=== PATIENT | male | born 1955 | race Caucasian/White ===

== ENCOUNTER → 2018-05-07 11:09 | Outpatient (CLI) | payer BC ==
[~2018-05-07 11:09] MED LIST: BACTRIM DS TABL1 TAB PO; LOPRESSOR25 MG PO
[2018-06-11 09:04] VITALS: BMI 31.9
== END | disposition home or self-care (01) ==
LOC: D.RAD 10:15
DX: Z87.442 Personal history of urinary calculi (principal)

== ENCOUNTER 2018-06-11 08:10 | Day surgery (SDC) | payer BC ==
[2018-06-10 15:00] LABS: HEMOGLOBIN 14.7 g/dL (13.5-17.5); MCH 30.6 pg (26.0-34.0); MCV 87.3 fL (80.0-100.0); MEAN PLATELET VOLUME 9.6 fL (7.4-10.4); RBC 4.81 10x6/uL (4.20-6.10); RDW 12.8 % (11.5-14.5); WBC 8.8 10x3/uL (4.8-10.8)
[~2018-06-11] VITALS: Ht 177.8 cm; Wt 100.7 kg
--- NOTE | ~2018-06-11 | OP ---
PATIENT NAME: YESSI RODAS MEDICAL RECORD: [id number] :57 LOCATION:[facility] ADMISSION DATE: SURGEON: PHILLIP SAMPSON MD DATE OF OPERATION: 06/11/2018 SURGEON: Phillip Sampson MD ANESTHESIA: MAC by Dr. Zeke Marrufo. DIAGNOSIS: Elevated PSA 4.4. PROCEDURE: Transrectal ultrasound and prostate biopsy. SPECIMENS: Prostate biopsy cores. FINDINGS: A 27-gram prostate, intraprostatic stones. BLOOD LOSS: Minimal. CLINICAL HISTORY: This is a 62-year-old male, who has an elevated PSA of 4.4. He has no family history of prostate cancer. He comes today for a transrectal ultrasound and prostate biopsy. He is not allergic to any medications. DESCRIPTION OF PROCEDURE: The patient was given IV sedation. He was then placed in dorsal lithotomy position and prepped and draped. An ultrasound probe was introduced and prostate size measurements were obtained. The prostate size was measured at 27 grams. Intraprostatic stones were seen, but no hypoechoic areas were seen. Sextant biopsies were obtained with at least 3 cores from each sextant. Once all the cores were obtained, then the procedure was terminated. I will see the patient back at the end of this week to review the pathology results with him. TRANSINT:[id number] Voice Confirmation ID: [id number] DOCUMENT ID: [id number] PHILLIP SAMPSON MD at 1554 CC: [id number] DICTATION DATE: 06/11/18 1500 GAS ENGINE MECHANIC: 06/11/18 1536 [facility] 06/11/18 [place] [address]
[~2018-06-11 08:10] MED LIST changes: -BACTRIM DS TABL1 TAB PO
[2018-06-11] MEDS ORDERED: BACTRIM DS TABL1 TAB PO (08:56)
[2018-06-11 09:04] VITALS: BP 132/90; Ht 177.8 cm; Wt 100.7 kg
== END 2018-06-11 15:47 | disposition home or self-care (01) ==
LOC: D.PAN 08:10 → D.OPS 10:30 → D.PAN 10:30
PROVIDERS: Anesthesiology
DX: R97.20 Elevated prostate specific antigen [PSA] (principal); Z01.812 Encounter for preprocedural laboratory examination

== ENCOUNTER → 2018-07-10 18:16 | Outpatient (CLI) | payer BC ==
[2018-06-11 09:04] VITALS: BMI 31.9
[~2018-07-10 18:16] MED LIST changes: +BACTRIM DS TABL1 TAB PO
== END | disposition home or self-care (01) ==
LOC: D.LABREF 18:16
DX: R31.9 Hematuria, unspecified (principal)

== ENCOUNTER → 2018-07-19 10:07 | Outpatient (CLI) | payer BC ==
[2018-06-11 09:04] VITALS: BMI 31.9
== END | disposition home or self-care (01) ==
LOC: D.US 10:07
DX: R31.0 Gross hematuria (principal)

== ENCOUNTER → 2018-08-15 16:02 | Outpatient (CLI) | payer BC ==
[2018-06-11 09:04] VITALS: BMI 31.9
[~2018-08-15 16:02] MED LIST changes: +ASPIRIN EC81 M1 PO; +KEFLEX500 MG PO; -LOPRESSOR25 MG PO; +METOPROLOL TART25 MG PO
== END | disposition home or self-care (01) ==
LOC: D.LABREF
DX: R31.9 Hematuria, unspecified (principal)

== ENCOUNTER → 2018-08-16 07:50 | Outpatient (CLI) | payer BC ==
[2018-06-11 09:04] VITALS: BMI 31.9
== END | disposition home or self-care (01) ==
LOC: D.CT 07:50
DX: R10.11 Right upper quadrant pain (principal); K76.9 Liver disease, unspecified

== ENCOUNTER 2018-09-03 08:05 | Day surgery (SDC) | payer BC ==
[2018-09-02 10:25] LABS: HEMATOCRIT 43.8 % (42.0-54.0); HEMOGLOBIN 15.1 g/dL (13.5-17.5); MCH 30.6 pg (26.0-34.0); MCHC 34.5 g/dL (31.0-37.0); MCV 88.8 fL (80.0-100.0); MEAN PLATELET VOLUME 9.7 fL (7.4-10.4); RBC 4.93 10x6/uL (4.20-6.10); RDW 12.3 % (11.5-14.5); WBC 7.4 10x3/uL (4.8-10.8)
[~2018-09-03] VITALS: Ht 177.8 cm; Wt 101.6 kg
--- NOTE | ~2018-09-03 | OP ---
PATIENT NAME: YESSI RODAS MEDICAL RECORD: [id number] :56 LOCATION:[facility] ADMISSION DATE: SURGEON: HEVER SAMPSON MD DATE OF OPERATION: 09/03/2018 SURGEON: Hever Sampson MD ANESTHESIA: General anesthesia by Gayle Wing CRNA. PREOPERATIVE DIAGNOSIS: Obstructive BPH. PROCEDURES: Cystoscopy, UroLift device implantation times 5 units used. FINDINGS: Obstructive bilateral lateral lobe hyperplasia. Minimal median lobe. Single ureteral orifices on each side inside the bladder. No bladder tumors were seen. Trabeculated bladder. BLOOD LOSS: None. CLINICAL HISTORY: This is a 62-year-old male with obstructive BPH. He has been on finasteride and tamsulosin for some time. He had a prostate biopsy for an elevated PSA of 4.6. The prostate biopsy was benign and it showed that he has a 27-gram prostate. His IPSS score is elevated at 21 and his quality of life score is 3. He will require cystoscopy to complete the hematuria workup. At the same time, he would like to have UroLift procedure done so that he can stop taking the medications for BPH. He is not allergic to any medications. He was given Ancef 2 grams IV title one teacher to the OR. DESCRIPTION OF PROCEDURE: The patient was given induction of general anesthesia. He was then placed in the dorsal lithotomy position and prepped and draped. The UroLift scope was introduced. No urethral strictures were seen. The bilateral lateral lobes of the prostate were obstructive in the midline. The median lobe was minimal. Other findings are as outlined above. At about 1.5-2 cm distal to the bladder neck, we introduced a UroLift implant on each side near the anterior urethra. Then, we went down to the verumontanum levels and introduced a UroLift implant on each side. On the right side, the clip came off. It remained stuck in the instrument. We therefore had to place another implant on the right distal portion near the verumontanum and this time the clip held perfectly. Visualization with the obturator at the end of the case showed a perfectly open anterior urethral channel through the prostatic urethra. The bladder was emptied through the scope and then the scope was removed entirely. I will see the patient in followup in 2 weeks' time. TRANSINT:[id number] Voice Confirmation ID: [id number] DOCUMENT ID: [id number] HEVER SAMPSON MD at 1406 CC: [id number] DICTATION DATE: 09/03/18 1236 TOOL POLISHING MACHINE OPERATOR: 09/03/18 1331 [facility] 09/03/18 [place] [id number] [place] [id number]
[~2018-09-03 08:05] MED LIST changes: -KEFLEX500 MG PO
[2018-09-03 08:36] VITALS: BP 138/83; Ht 177.8 cm; Wt 101.6 kg
[2018-09-04] MEDS ORDERED: KEFLEX500 MG PO (06:44)
== END 2018-09-03 13:30 | disposition home or self-care (01) ==
LOC: D.OPS 08:05 → D.PAN 10:30 → D.OPS 11:20 → D.PAN 12:05 → D.OPS 13:30
PROVIDERS: Anesthesiology
DX: N40.1 Benign prostatic hyperplasia with lower urinary tract symptoms (principal); N13.8 Other obstructive and reflux uropathy

== ENCOUNTER 2018-09-04 05:20 | Emergency (ER) | payer BC ==
[~2018-09-04] VITALS: Ht 177.8 cm; Wt 100.0 kg
[2018-09-04 05:28] VITALS: Ht 177.8 cm; Wt 100.0 kg
[2018-09-04] MEDS ORDERED: KEFLEX500 MG PO (06:44)
[2018-09-04 07:01] LABS: APPEARANCE HAZY (CLEAR); COLOR YELLOW (YELLOW); SPECIFIC GRAVITY 1.015 (1.005-1.020)
[2018-09-04 07:02] LABS: BACTERIA FEW /hpf (NONE SEEN); BILIRUBIN NEGATIVE (NEGATIVE); EPITHELIAL CELLS RARE /hpf (0-5); GLUCOSE NEGATIVE (NEGATIVE); KETONE NEGATIVE (NEGATIVE); NITRITE NEGATIVE (NEGATIVE); PROTEIN 1+ mg/dL (NEGATIVE); RED CELLS - URINE >50 /hpf (0-5); UROBILINOGEN NORMAL (NORMAL)
[2018-09-04 07:23] VITALS: BP 164/98
== END 2018-09-04 07:27 | disposition home or self-care (01) ==
LOC: D.ER 05:20
PROVIDERS: Family Medicine
DX: R33.8 Other retention of urine (principal); R10.30 Lower abdominal pain, unspecified; I10 Essential (primary) hypertension; Z85.828 Personal history of other malignant neoplasm of skin

== ENCOUNTER 2018-09-04 22:55 | Emergency (ER) | payer BC ==
[~2018-09-04] VITALS: Ht 177.8 cm; Wt 100.0 kg
[2018-09-04 05:28] VITALS: Ht 177.8 cm; Wt 100.0 kg
[~2018-09-04 22:55] MED LIST changes: +KEFLEX500 MG PO
[2018-09-05 01:26] VITALS: BP 143/79
== END 2018-09-05 01:15 | disposition home or self-care (01) ==
LOC: D.ER 22:55
DX: R33.9 Retention of urine, unspecified (principal); I10 Essential (primary) hypertension; R00.0 Tachycardia, unspecified

== ENCOUNTER 2018-09-07 14:45 | Emergency (ER) | payer BC ==
[~2018-09-07] VITALS: Ht 177.8 cm; Wt 100.0 kg
[2018-09-07 14:48] VITALS: Ht 177.8 cm; Wt 100.0 kg
[2018-09-07 16:38] VITALS: BP 166/89
== END 2018-09-07 16:38 | disposition home or self-care (01) ==
LOC: D.ER 14:45
DX: Z46.89 Encounter for fitting and adjustment of other specified devices (principal); R33.9 Retention of urine, unspecified; I10 Essential (primary) hypertension